=== PATIENT | male | born 1995 | race Caucasian/White ===

== ENCOUNTER 2025-01-11 09:04 | Inpatient (IN) | payer SELFPAY ==
[~2025-01-11] VITALS: Ht 170.2 cm; Wt 71.2 kg
[2025-01-11] MEDS: OLANZAPINE 10 MG/VIAL IM ONE (09:42)
[2025-01-11 09:47] LABS: BASOPHILS % 0.7 % (0.0-2.0); EOSINOPHILS % 0.6 % (0.0-5.0); HEMOGLOBIN. 17.6 g/dL (14.0-18.0); LYMPHOCYTES % 31.3 % (20.0-50.0); MEAN CORPUSCULAR HEMOGLOBIN 32.2 pg (28.0-32.0); MEAN CORPUSCULAR HGB CONC 34.6 g/dL (31.0-37.0); MEAN CORPUSCULAR VOLUME 93.1 fL (80.0-94.0); MEAN PLATELET VOLUME 7.4 fl (7.4-10.4); MONOCYTES % 7.2 % (2.0-8.0); NEUTROPHILS % 60.2 % (40.0-76.0); PLATELET 252 x1000/uL (130-400); RED BLOOD CELL COUNT 5.47 mill/uL (4.7-6.1); RED CELL DISTRIBUTION WIDTH 13.4 % (11.6-14.6); WHITE BLOOD COUNT 10.6 x1000/uL (4.5-11.0)
[2025-01-11 09:55] LABS: CHLORIDE 105 mEq/L (98-107); POTASSIUM 3.6 mEq/L (3.5-5.1); SODIUM 142 mEq/L (136-145)
[2025-01-11 09:56] LABS: CARBON DIOXIDE 26 mEq/L (21-32)
[2025-01-11 10:01] LABS: CREATININE 0.8 mg/dL (0.6-1.3); GLUCOSE 142 mg/dL (70-105); UREA NITROGEN BLOOD 7 mg/dL (9-23)
[2025-01-11 10:11] LABS: ETHANOL BLOOD 392 mg/dL (<10)
[2025-01-11] MEDS: LORAZEPAM 2MG/ML UD SYRINGE IV SCH (10:22)
[2025-01-11] MEDS: SODIUM CHLORIDE 0.9% 1,000 ML IV ONE (10:22)
[2025-01-11] MEDS ORDERED: LORAZEPAM 2MG/ML INJ IV ONE (10:30)
[2025-01-11 10:38] LABS: CLARITY URINE CLEAR (CLEAR); COLOR URINE YELLOW (YELLOW); GLUCOSE URINE NEGATIVE (NEGATIVE); KETONES URINE NEGATIVE (NEGATIVE); LEUKOCYTE ESTERASE URINE NEGATIVE (NEGATIVE); NITRITE URINE NEGATIVE (NEGATIVE); OCCULT BLOOD URINE NEGATIVE (NEGATIVE); PROTEIN URINE NEGATIVE (NEGATIVE); SPECIFIC GRAVITY URINE 1.004 (1.005-1.030); UROBILINOGEN URINE 0.2 E.U./dL (0.2-1.0)
[2025-01-11 11:12] LABS: *AMPHETAMINES SCREEN URINE NEGATIVE (NEGATIVE)
[2025-01-11 11:13] LABS: *BARBITURATES SCREEN URINE NEGATIVE (NEGATIVE); *BENZODIAZEPINES SCREEN URINE NEGATIVE (NEGATIVE); *COCAINE SCREEN URINE NEGATIVE (NEGATIVE); CANNABINOID URINE SCREEN PRESUMPTIVE POSITIVE (NEGATIVE); ECSTASY MDMA SCREEN URINE NEGATIVE (NEGATIVE); METHADONE URINE SCREEN NEGATIVE (NEGATIVE); OPIATES URINE SCREEN NEGATIVE (NEGATIVE); PHENCYCLIDINE URINE SCREEN NEGATIVE (NEGATIVE)
[2025-01-11 12:00] VITALS: BP 123/74; PULSE 54; RESP 18; TEMP 36.2; O2SAT 100
[2025-01-11] MEDS ORDERED: CLONIDINE 0.1MG TABLET PO PRN (12:30)
[2025-01-11] MEDS ORDERED: IPRATROPIUM/ALBUTEROL 0.5-3(2.5)MG/3ML NEB HHN PRN (12:30)
[2025-01-11] MEDS ORDERED: GUAIFENESIN 200MG/10ML SUGAR FREE UDC PO PRN (12:30)
[2025-01-11] MEDS ORDERED: ACETAMINOPHEN 325MG TABLET PO PRN ×2 (12:30)
[2025-01-11] MEDS ORDERED: MAGNESIUM/ALUMINUM HYDROXIDE/SIMETHICONE 30ML UDC PO PRN (12:30)
[2025-01-11] MEDS ORDERED: MORPHINE SULFATE 4 MG/ML INJ (FOR IV/IM USE) IV PRN (12:30)
[2025-01-11] MEDS ORDERED: DOCUSATE SODIUM 100MG CAPSULE PO PRN (12:30)
[2025-01-11] MEDS ORDERED: NALOXONE HCL 0.4MG/ML VIAL IV PRN (13:15)
[2025-01-11 13:16] LABS: ALANINE AMINOTRANSFERASE 34 IU/L (10-49); ALBUMIN 5.1 g/dL (3.2-4.8); ASPARTATE AMINOTRANSFERASE 59 IU/L (<34)
[2025-01-11 13:17] LABS: BILIRUBIN DIRECT 0.1 mg/dL (<=3.0); BILIRUBIN TOTAL 0.5 mg/dL (0.1-1.0); PROTEIN TOTAL 8.1 g/dL (6.0-8.3)
[2025-01-11] MEDS ORDERED: CEFTRIAXONE 1GM/50ML 50 ML IV SCH (13:30)
[2025-01-11 13:35] LABS: HEPATITIS B SURFACE ANTIGEN NEGATIVE (Negative)
[2025-01-11 13:52] LABS: LACTIC ACID 2.4 mmol/L (0.4-2.0)
[2025-01-11 13:56] LABS: HEPATITIS A AB IGM NEGATIVE (Negative); HEPATITIS B CORE AB IGM NEGATIVE (Negative)
[2025-01-11 13:57] LABS: HEPATITIS C AB NON REACTIVE (Neg) (Negative)
[2025-01-11] MEDS ORDERED: CHLORDIAZEPOXIDE 25MG CAPSULE PO SCH (14:00)
[2025-01-11] MEDS ORDERED: CEFTRIAXONE 500 MG in DEXTROSE 5% WATER 50 ML IV SCH (14:00)
[2025-01-11] MEDS: MVI, ADULT NO.1 10 ML, FOLIC ACID 1 MG, THIAMINE HCL 100 MG in SODIUM CHLORIDE 0.9% 1,0... IV SCH (15:16)
[2025-01-11] MEDS: LORAZEPAM 2MG/ML UD SYRINGE IV PRN (16:01)
[2025-01-11 16:24] LABS: CREATINE KINASE 942 IU/L (46-171)
[2025-01-11 16:25] LABS: CREATINE KINASE MB FRACTION 11.3 ng/mL (0.5-3.6)
[2025-01-11 16:26] LABS: TROPONIN I HIGH SENSITIVITY 43 ng/L (3.0-53)
[2025-01-11 20:00] VITALS: BP_SYST 105; BP_SYST 116; BP_DIAS 54; BP_DIAS 70; PULSE 59; PULSE 65; RESP 16; RESP 17; TEMP 36.7; O2SAT 100
[2025-01-11] MEDS: HYDROCODONE/ACETAMINOPHEN 5/325MG TABLET PO PRN (22:50)
[2025-01-12] VITALS: BP 105/58; PULSE 61; RESP 17; TEMP 36.7; O2SAT 100
[2025-01-12 00:32] LABS: CREATINE KINASE MB FRACTION 6.8 ng/mL (0.5-3.6)
[2025-01-12 04:00] VITALS: BP 131/72; PULSE 69; RESP 16; TEMP 36.8; O2SAT 100
[2025-01-12 07:29] LABS: BASOPHILS % 0.2 % (0.0-2.0); EOSINOPHILS % 2.5 % (0.0-5.0); HEMATOCRIT. 46.1 % (42.0-52.0); HEMOGLOBIN. 15.8 g/dL (14.0-18.0); LYMPHOCYTES % 31.8 % (20.0-50.0); MEAN CORPUSCULAR HEMOGLOBIN 32.6 pg (28.0-32.0); MEAN CORPUSCULAR HGB CONC 34.3 g/dL (31.0-37.0); MEAN CORPUSCULAR VOLUME 95.3 fL (80.0-94.0); MEAN PLATELET VOLUME 7.9 fl (7.4-10.4); MONOCYTES % 7.6 % (2.0-8.0); NEUTROPHILS % 57.9 % (40.0-76.0); PLATELET 186 x1000/uL (130-400); RED BLOOD CELL COUNT 4.84 mill/uL (4.7-6.1); RED CELL DISTRIBUTION WIDTH 13.4 % (11.6-14.6)
[2025-01-12 07:52] LABS: CARBON DIOXIDE 29 mEq/L (21-32); CHLORIDE 105 mEq/L (98-107); POTASSIUM 3.8 mEq/L (3.5-5.1); SODIUM 143 mEq/L (136-145)
[2025-01-12 07:57] LABS: CREATININE 0.7 mg/dL (0.6-1.3); GLUCOSE 99 mg/dL (70-105)
[2025-01-12 07:58] LABS: TRIGLYCERIDE 158 mg/dL (0-150); UREA NITROGEN BLOOD 8 mg/dL (9-23)
[2025-01-12 07:59] LABS: CHOLESTEROL 173 mg/dL (<200); LDL CHOLESTEROL 108 mg/dL (5-100); T4 FREE 1.17 ng/dL (0.89-1.76)
[2025-01-12 08:00] VITALS: BP 117/66; PULSE 69; RESP 17; TEMP 37.2; O2SAT 98
[2025-01-12 08:00] LABS: HDL CHOLESTEROL 40 mg/dL (>55)
[2025-01-12] MEDS: THIAMINE HCL 100MG TABLET PO SCH (09:45)
[2025-01-12] MEDS: FOLIC ACID 1MG TABLET PO SCH (09:45)
[2025-01-12] MEDS: PANTOPRAZOLE SODIUM 40 MG/VIAL IV SCH (09:46)
[2025-01-12 11:54] VITALS: BP 117/66; PULSE 69; TEMP 98.9; O2SAT 98
[2025-01-12 12:00] VITALS: BP 109/53; PULSE 53; RESP 16; TEMP 36.9; O2SAT 97
== END 2025-01-12 13:18 | disposition home or self-care (01) | DRG 351 ==
LOC: ER 09:04 → 6WST 11:49 → EDBEDREQ 11:52 → EDBEDREQTM 11:52 → ENRESERV 11:59
PROVIDERS: ADMIT Internal Medicine; ATTEND Internal Medicine
DX: M25.532 Pain in left wrist (principal); F10.129 Alcohol abuse with intoxication, unspecified; F12.10 Cannabis abuse, uncomplicated; R73.9 Hyperglycemia, unspecified; F41.9 Anxiety disorder, unspecified
CPT/HCPCS: 36415; 71045; 73060; 73110; 76700; 80048; 80061; 80076; 80305; 80320; 81003; 82550; 82553; 83036; 83605; 84145; 84439; 84443; 84484; 85025; 86705; 86709; 87340; 97162; 97165; 99291; A4565; A4606; J0696; J2060; J2470; J3411; J3490; J7030; J7060; G0480